=== PATIENT | male | born 2000 | race African-American/Black ===

== ENCOUNTER 2019-04-21 21:06 | Emergency (ER) | payer OTHER ==
[~2019-04-21] VITALS: Ht 182.9 cm; Wt 59.0 kg
[2019-04-21 21:25] VITALS: BP 126/78
--- NOTE | 2019-04-21 21:25 | NUR ---
ED Nurse Note: Pt walked into ED from home for c/o lump under R mandible. Pt states lump appeared 2 days ago and is tender and "feels like a bruise". Small mass noted under R mandible. Pt is aaox4, no cardiac or respiratory distress noted.
--- NOTE | 2019-04-21 22:14 | Emergency Room Report ---
History of Present Illness General Chief Complaint: Neck Pain Source: Patient Present Illness HPI Patient presents with complaints of swelling under the left lower chin jaw area He noticed this area 2 days ago denies any fevers or chills denies any cough Denies any chest pain or shortness of breath denies any dental pain the area does feel somewhat tender on palpation Denies any posterior neck pain or photophobia denies any recent trauma Allergies: Coded Allergies: No Known Allergies (Unverified , 04/21/19) Patient History Past Medical History: see triage record Reviewed Nursing Documentation: PMH: Agreed; PSxH: Agreed Nursing Documentation-PMH Past Medical History: No Stated History Review of Systems All Other Systems: negative except mentioned in HPI Physical Exam Vital Signs Date Time Temp Pulse Resp B/P (MAP) Pulse Ox O2 Delivery O2 Flow Rate FiO2 04/21/19 21:19 98.2 93 16 126/78 (94) 98 Room Air Sp02 EP Interpretation: reviewed, normal General Appearance: well appearing, no apparent distress Head: normocephalic, atraumatic Eyes: bilateral eye PERRL, bilateral eye EOMI ENT: other - Small quarter centimeter well-circumscribed round palpable what feels to be likely lymph node,just under right jawline Neck: supple Respiratory: lungs clear, no respiratory distress, no retraction Cardiovascular #1: regular rate, rhythm Gastrointestinal: non tender, soft Musculoskeletal: normal inspection Neurologic: alert, oriented x3 Psychiatric: normal inspection Skin: no rash Lymphatic: other - Palpable lymphadenopathy as noted Medical Decision Making Diagnostic Impression: Primary Impression: lymphadenopathy ER Course The area in question appears to be consistent with lymphadenopathy The area does not appear erythematous there is no fluctuance my suspicion for other infectious process is low, The area presented 2 days ago Patient does not appear septic or toxic at this time I do not feel patient meets emergent criteria for Blood work or imaging however he understands that the area does need to start decreasing in size over the next 7 to 8 days Patient also requires close follow-up with primary physician for further outpatient follow-up and possible biopsy if the area is not improving as this can be signs of infected lymph node versus carcinoma such as lymphoma, Last Vital Signs Date Time Temp Pulse Resp B/P (MAP) Pulse Ox O2 Delivery O2 Flow Rate FiO2 04/21/19 21:25 98.2 93 16 126/78 98 Room Air Status: unchanged Disposition: HOME, SELF-CARE Condition: Stable Referrals: PMD Patient Instructions: Lymphadenopathy Additional Instructions: Patient is provided with the discharge instructions notified to follow up with primary doctor in the next 2-3 days otherwise return to the er with any worsening symptoms. Please note that this report is being documented using [employer] technology. This can lead to erroneous entry secondary to incorrect interpretation by the dictating instrument. Lora Moralez DO Apr 21, 2019 22:14
[2019-04-21 22:15] VITALS: BP 118/86
--- NOTE | 2019-04-21 22:15 | NUR ---
ER DISCHARGE NOTE: Patient is cleared to be discharged per ERMD, pt is aox4, on room air, with stable vital signs. pt was given dc instructions, pt was able to verbalize understanding, pt id band removed. pt is able to ambulate with steady gait. pt took all belongings.
== END 2019-04-21 22:15 | disposition home or self-care (01) ==
LOC: EMR 21:47
DX: R59.1 Generalized enlarged lymph nodes (principal)
CPT/HCPCS: 99281

== ENCOUNTER 2020-01-16 19:46 | Emergency (ER) | payer OTHER ==
[~2020-01-16] VITALS: Ht 180.3 cm; Wt 59.0 kg
--- NOTE | 2020-01-16 20:05 | NUR ---
ED Nurse Note: pt presents to ED for an STI check, states that his partner noticed bumps and he wanted to be checked out. pt also has a sore throat, no airway compromise, hurts to swallow Addendum: 01/16/20 at 2008 by [facility] ED Nurse Note: pt also reports that the bumps are open lesions. pt also reports visualizing white spots on his throat when he looked in the mirror today.
[2020-01-16 20:06] VITALS: BP 124/84
[2020-01-16] MEDS ORDERED: ACYCLOVIR800 MG ORAL (20:24)
[2020-01-16] MEDS ORDERED: AMOXICILLIN500 MG ORAL (20:24)
[2020-01-16 20:30] VITALS: BP 124/84
--- NOTE | 2020-01-16 20:31 | NUR ---
ER DISCHARGE NOTE: Patient is cleared to be discharged per ERMD, pt is aox4, on room air, with stable vital signs. pt was given dc and prescription instructions, pt was able to verbalize understanding, pt id band removed without complications. pt is able to ambulate with steady gait. pt took all belongings.
--- NOTE | 2020-01-16 21:18 | Emergency Room Report ---
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 Nursing Documentation-[facility] Past Medical History: No Stated History Physical Exam Vital Signs Date Time Temp Pulse Resp B/P (MAP) Pulse Ox O2 Delivery O2 Flow Rate FiO2 01/16/20 20:01 98.8 100 16 124/84 (97) 98 Room Air Medical Decision Making Diagnostic Impression: Primary Impression: Pharyngitis Additional Impression: Herpes Last Vital Signs Date Time Temp Pulse Resp B/P (MAP) Pulse Ox O2 Delivery O2 Flow Rate FiO2 01/16/20 20:30 98.8 16 124/84 98 Room Air 01/16/20 20:01 100 Disposition: HOME, SELF-CARE Condition: Stable Scripts Acyclovir* (ZOVIRAX*) 800 Mg Tablet 800 MG ORAL FIVE TIMES A DAY for 7 Days, TAB Prov: Himanshu Curran MD 01/16/20 Amoxicillin* (AMOXIL*) 500 Mg Capsule 500 MG ORAL THREE TIMES A DAY, #21 CAP Prov: Himanshu Curran MD 01/16/20 Referrals: NOT CHOSEN IPA/,[facility] Patient Instructions: Pharyngitis, [id number], Herpes Simplex Test Himanshu Curran MD Jan 16, 2020 21:18
== END 2020-01-16 20:30 | disposition home or self-care (01) ==
LOC: EMR 20:15
DX: J02.9 Acute pharyngitis, unspecified (principal); B00.9 Herpesviral infection, unspecified
CPT/HCPCS: 99282

== ENCOUNTER 2020-01-27 17:11 | Emergency (ER) | payer OTHER ==
[~2020-01-27] VITALS: Ht 180.3 cm; Wt 59.0 kg
[~2020-01-27 17:11] MED LIST: ACYCLOVIR800 MG ORAL; AMOXICILLIN500 MG ORAL
[2020-01-27 17:29] VITALS: BP 109/59
--- NOTE | 2020-01-27 17:29 | NUR ---
ED Nurse Note: Pt walked in to ED for medication refill for Acyclovir. Pt reports hx of herpes. vss. denies pain. nad noted.
--- NOTE | 2020-01-27 17:32 | Emergency Room Report ---
History of Present Illness General Chief Complaint: Medication Refill Source: Patient Present Illness HPI 19-year-old male with no significant past medical history other than outbreaks of herpes here requesting medication refill for acyclovir. Patient reports that he is having genital herpes. Denies any penile discharge, dysuria, nocturia, fever and chills. Denies scrotal pain and swelling. 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: No - 2 weeks ago COVID-19 Screening: Negative COVID-19 COVID-19 Testing Source: drive thru Patient History Past Medical History: see triage record Past Surgical History: none Pertinent Family History: none Immunizations: UTD Reviewed Nursing Documentation: PMH: Agreed; PSxH: Agreed Review of Systems All Other Systems: negative except mentioned in HPI Physical Exam Vital Signs Date Time Temp Pulse Resp B/P (MAP) Pulse Ox O2 Delivery O2 Flow Rate FiO2 01/27/20 17:14 98.4 83 19 109/59 (76) 97 Room Air Sp02 EP Interpretation: reviewed, normal General Appearance: no apparent distress, alert, GCS 15, non-toxic Head: normocephalic, atraumatic Eyes: bilateral eye normal inspection, bilateral eye PERRL ENT: hearing grossly normal, normal pharynx, no angioedema, normal voice Neck: full range of motion, supple/symm/no masses Respiratory: chest non-tender, lungs clear, normal breath sounds, speaking full sentences Cardiovascular #1: regular rate, rhythm, no edema Gastrointestinal: normal bowel sounds, non tender, soft, non-distended, no guarding, no rebound Musculoskeletal: back normal Neurologic: alert, motor strength/tone normal, oriented x3, sensory intact, responsive, speech normal Psychiatric: judgement/insight normal, memory normal, mood/affect normal, no suicidal/homicidal ideation Skin: no rash Lymphatic: no adenopathy Medical Decision Making PA Attestation All my diagnosis and treatment plans were reviewed ad discussed with my sup ervising physician Dr. Lopez Diagnostic Impression: Primary Impression: Encounter for medication refill Additional Impression: Herpes ER Course 19-year-old male with no significant past medical history other than outbreaks of herpes here requesting medication refill for acyclovir. Patient reports that he is having genital herpes. Denies any penile discharge, dysuria, nocturia, fever and chills. Denies scrotal pain and swelling. Ddx considered but are not limited to: UTI, chlamydia, Gonorrhea, syphilis, HIV, herpes 1 or 2 Vital signs: are WNL, pt. is afebrile H&PE are most consistent with : Herpes, medication refill ORDERS: UA, urince cx, acyclovir ED INTERVENTIONS: None required at this time. DISCHARGE: At this time pt. is stable for d/c to home. Will provide printed patient care instructions, and any necessary prescriptions. Care plan and follow up instructions have been discussed with the patient prior to discharge. Last Vital Signs Date Time Temp Pulse Resp B/P (MAP) Pulse Ox O2 Delivery O2 Flow Rate FiO2 01/27/20 17:29 98.4 19 109/59 97 Room Air 01/27/20 17:14 83 Disposition: HOME, SELF-CARE Condition: Stable Scripts Acyclovir* (ACYCLOVIR*) 400 Mg Tablet 400 MG ORAL TID for 7 Days, #21 TAB Prov: Joshua Moreno 01/27/20 Patient Instructions: Medicine Refill at the Emergency Department Joshua Moreno Jan 27, 2020 17:32
[2020-01-27] MEDS ORDERED: ACYCLOVIR400 MG ORAL (17:33)
--- NOTE | 2020-01-27 17:41 | NUR ---
ED Nurse Note: Pt cleared by health care Provider for discharge. DC instructions/prescription was given and explained to pt and verbalized understanding of teachings. All medical deviecs such as ID band removed. Pt is AAO x4, ambulatory and left with all personal belongings.
== END 2020-01-27 17:45 | disposition home or self-care (01) ==
LOC: EMR 17:30
DX: Z76.0 Encounter for issue of repeat prescription (principal); A60.00 Herpesviral infection of urogenital system, unspecified
CPT/HCPCS: 99282

== ENCOUNTER 2020-04-11 22:28 | Emergency (ER) | payer OTHER ==
[~2020-04-11] VITALS: Ht 180.3 cm; Wt 59.0 kg
[~2020-04-11 22:28] MED LIST changes: +ACYCLOVIR400 MG ORAL
--- NOTE | 2020-04-11 22:42 | NUR ---
ED Nurse Note: Pt walked in from home, axox4, walks with a steady gait, vitals are stable on RA, states that he has a sore on his lip that begian about a day ago. He also has some sores on the inside of his lip. The one on his lip has a yellow crusted scab. He states there is some tingling involved.
[2020-04-11 22:44] VITALS: BP 110/63
[2020-04-11] MEDS ORDERED: Lidocaine 1% MPF 10mg/ml 5ml INJ ONE (22:45)
[2020-04-11] MEDS ORDERED: Azithromycin 250mg tab ORAL ONE (22:45)
--- NOTE | 2020-04-11 22:58 | Emergency Room Report ---
History of Present Illness General Chief Complaint: General Complaint Source: Patient Present Illness HPI 19-year-old male with past medical history of herpes presents with STD exposure. Patient states that his last sexual contact was 2 days ago with a female. He wore protection, however noticed that he was having a breakout of vesicles around his lips and tongue. His last breakout was in December 2019 and involved genital vesicular lesions at that time. He denies any dysuria, penile discharge, testicular lesions, scrotal pain, testicular pain, hematuria, abdominal pain, nausea, vomiting or any other symptoms. The patient's symptoms were gradual onset, severity was moderate, duration since 2 days Quality: itching Past medical history: herpes Past surgical history: Denies Smoking: Denies Alcohol use: ++ Drug use: ++ marijuana use Review of systems: CONST: No fevers or chills, No night sweats PULMONARY: No productive cough, No shortness of breath CARDIAC: No chest pain, No palpitations GI: No vomiting, No diarrhea , No melena_or_BRBPR : No dysuria, No hematuria, No discharge NEURO: No new_focal_weakness_or_numbness, No confusion, No vision changes 14 point Review of Systems is otherwise negative except per HPI Physical Exam: GENERAL: Awake_alert_ nontoxic, no acute distress Spo2 98% on RA -normal EYES: Extraocular muscles are intact. Conjunctivae clear. Lids without swelling ENT: External nose and ear normal_in_appearance. Oropharynx clear. Head_atraumatic, Moist_oral_mucosa NECK: No JVD. No meningismus. No thyromegaly. Supple. Trachea midline RESP: Normal respiratory effort. Symmetric rise. No stridor. Clear_to_auscultation_No_rales_No_wheezes CARDIAC: Regular rate and regular rhytm. No_significant pedal edema. ABDOMEN: Soft. Nondistended. Nontender_No_rebound_or_guarding. : penis without rash, testicles descended without tenderness or swelling, testicles with normal lie. Chaperoned with nurse Frederick at bedside MSK: Normal muscle tone, without rigidity. Extremities without asymmetric deformity or swelling. SKIN: Warm and dry. No visible cyanosis or pallor. No petechaie NEUROLOGIC: Alert, oriented x3. Motor_and_sensation_grossly_intact. No truncal ataxia. Gait_normal Psych: Normal mood and affect, normal judgment and insight - COORDINATION OF CARE Case was discussed with: Patient Medical Decision Making/Plan: Differential diagnosis includes chlamydia, gonorrhea, herpes, other STDs, UTI, among others Patient is nontoxic and well-appearing, no evidence of sepsis or pyelonephritis based on presentation. Patient was empirically treated with ceftriaxone, azithromycin for chlamydia versus gonorrhea. Flagyl for trich. Acyclovir given for likely herpes outbreak Patient advised not to drink alcohol for at least 1 week. Patient understands to get the rest of STD testing with their PMD including HIV and syphilis, among others. Safe sex practices were discussed and patient was instructed to abstain from sex with infected partners. Pertinent results reviewed with the patient. I educated the patient on the current treatment plan including the risks, benefits, and alternatives. I also discussed the extent and limitations of the current evaluation. The patient expressed understanding and agreement with plan. I recommended PMD follow-up within 1-2 days. Also advised that the patient return to the Emergency Department as soon as possible if they experience any new, persistent, or worsening symptoms. 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: No Nursing Documentation-PMH Past Medical History: No Stated History Physical Exam Vital Signs Date Time Temp Pulse Resp B/P (MAP) Pulse Ox O2 Delivery O2 Flow Rate FiO2 04/11/20 22:31 98.2 76 18 104/63 (77) 95 Room Air Sp02 EP Interpretation: reviewed, normal Medical Decision Making Diagnostic Impression: Primary Impression: Herpes Additional Impression: STD exposure Last Vital Signs Date Time Temp Pulse Resp B/P (MAP) Pulse Ox O2 Delivery O2 Flow Rate FiO2 04/11/20 22:44 75 18 Room Air 04/11/20 22:44 98.0 110/63 99 Disposition: HOME, SELF-CARE Admit Decision Time: 22:57 Condition: Stable Referrals: NOT CHOSEN IPA/MD,REFERRING (PCP) Patient Instructions: Genital Herpes, Sexually Transmitted Disease, [id number] Additional Instructions: 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 Do not drink alcohol for 1 week to avoid disulfiram reaction from drinking interaction with antibiotic Wear condoms. Do not have sex with infected partners. Do not touch your lesions and then rub your eyes Follow-up with your doctor sooner if your condition requires a more timely clinical reevaluation. Return to the emergency department immediately if you feel that your condition is worsening or if you have any new or concerning symptoms. Review your discharge instructions and take any prescriptions given as instructed. [facility] PROVIDES FREE OR LOW-COST HEALTH SERVICES TO PEOPLE WHO CAN SHOW PROOF THAT THEY LIVE IN [facility]. TO FIND MORE CLINICS PARTNERED WITH [facility] TO PROVIDE SERVICE, PLEASE CALL . Chantell Benedict D.O. Apr 11, 2020 22:58
[2020-04-11] MEDS ORDERED: metroNIDAZOLE 250mg tab ONE (23:01)
[2020-04-11] MEDS ORDERED: metroNIDAZOLE 500mg tab ONE (23:02)
[2020-04-11] MEDS: metroNIDAZOLE 250mg tab ORAL SCH ×2 (23:09→23:17)
[2020-04-11] MEDS: metroNIDAZOLE 500mg tab ORAL ONE ×2 (23:18→23:20)
[2020-04-11] MEDS: metroNIDAZOLE 250mg tab ORAL ONE ×2 (23:18→23:19)
[2020-04-11 23:21] VITALS: BP 105/62
--- NOTE | 2020-04-11 23:21 | NUR ---
ER DISCHARGE NOTE: Patient is cleared to be discharged per ERMD, pt is aox4, on room air, with stable vital signs. pt was given dc and prescription instructions, pt was able to verbalize understanding, pt id band removed. pt is able to ambulate with steady gait. pt took all belongings. pt left in a private car
== END 2020-04-11 23:22 | disposition home or self-care (01) ==
LOC: EMR 22:41
DX: B00.9 Herpesviral infection, unspecified (principal)
CPT/HCPCS: 96372; J0696; Q0144; Z7502; 99283